=== PATIENT | male | born 1965 | race Caucasian/White ===

== ENCOUNTER 2021-07-06 13:27 | Outpatient (CLI) | payer OTHER, SELFPAY ==
[2021-07-06 13:34] VITALS: BP 153/83; PULSE 92; RESP 16; TEMP 36.6; O2SAT 98; BMI 31.5
[2021-07-06 14:25] VITALS: BP 136/89; PULSE 88; RESP 16; TEMP 36.6; O2SAT 97
[2021-07-06 15:25] VITALS: BP 136/87; PULSE 85; RESP 16; TEMP 36.6; O2SAT 94
== END 2021-07-06 13:28 | disposition home or self-care (01) ==
LOC: OPS 13:29
PROVIDERS: PCP Family Medicine; Visit Provider Family Medicine
DX: U07.1 COVID-19 (principal)
CPT/HCPCS: 96365